=== PATIENT | female | born 1975 | race Caucasian/White ===

== ENCOUNTER → 2023-08-27 08:18 | Outpatient (CLI) | payer OTHER, SELFPAY ==
--- NOTE | ~2023-08-27 | US_ITS ---
Limited Abdominal Sonogram: Real-time sonographic imaging of the right upper quadrant was performed. Clinical History: Abdominal pain Findings: The liver appears echogenic, with no evidence of mass lesion or bile duct dilatation. Ther e is probable focal fatty sparing adjacent to the gallbladder fossa. Main portal vein demonstrates no rmal direction of flow. The gallbladder is well distended, and appears normal with no evidence of gal lstone or wall thickening. The common bile duct measures 4 mm. The visualized pancreas, aorta, and I VC are unremarkable. Impression: Diffuse fatty infiltration of the liver. Probable focal fatty sparing adjacent to the gallbladder fos sa. Reviewed, dictated and finalized at location M. COORDINATOR Impression: Diffuse fatty infiltration of the liver. Probable focal fatty sparing adjacent to the gallbladder fossa.
== END ==
PROVIDERS: PCP Family Medicine; Visit Provider Family Medicine
DX: R10.811 Right upper quadrant abdominal tenderness (principal); K76.0 Fatty (change of) liver, not elsewhere classified
CPT/HCPCS: 76705

== ENCOUNTER → 2023-09-15 14:35 | Outpatient (CLI) | payer OTHER, SELFPAY ==
--- NOTE | ~2023-09-15 | CT_ITS ---
EXAMINATION: CT BRAIN W/O DATE: 09/15/2023 14:51 INDICATION: Dizziness TECHNIQUE: Computed tomography (CT) of the head was performed without intravenous contrast. The dose- length product was 599.57 mGy-cm. COMPARISON: No prior studies for comparison. FINDINGS: Normal brain parenchymal volume for age. Normal varner-white differentiation. No acute intrac ranial hemorrhage, infarction, mass or mass effect. No ventriculomegaly or midline shift. Midline sagittal images demonstrate a normal corpus callosum, c raniovertebral junction and sella turcica. Basilar cisterns are patent. Paranasal sinuses and mastoids are pneumatized. No depressed skull fractures. IMPRESSION: 1. No acute intracranial abnormality. Reviewed, dictated and finalized at location B. MAKER
== END ==
PROVIDERS: Visit Provider Family Medicine
DX: R42 Dizziness and giddiness (principal); R51.9 Headache, unspecified
CPT/HCPCS: 70450